=== PATIENT | female | born 1945 | race African-American/Black ===

== ENCOUNTER 2017-02-13 16:57 | Inpatient (IN) | payer MEDICARE, OTHER ==
[~2017-02-13] VITALS: Ht 170.2 cm; Wt 59.0 kg
[2017-02-13] MEDS ORDERED: SIMVASTATIN20 MG ORAL (17:13)
[2017-02-13] MEDS ORDERED: PROZAC10 MG ORAL (17:13)
[2017-02-13] MEDS ORDERED: AVAPRO150 MG ORAL (17:13)
[2017-02-13] MEDS ORDERED: FERROUS SULFAT325 MG ORAL (17:13)
[2017-02-13] MEDS ORDERED: PROZAC20 MG ORAL (17:13)
[2017-02-13] MEDS ORDERED: JANUVIA100 MG ORAL (17:13)
[2017-02-13] MEDS ORDERED: PRILOSEC OTC20 MG ORAL (17:13)
[2017-02-13] MEDS ORDERED: TRAZODONE HCL100 MG ORAL (17:13)
[2017-02-13] MEDS ORDERED: SYNTHROID25 MCG ORAL (17:13)
[2017-02-13 18:06] LABS: BASOPHILS % (AUTO) 1.3 % (0.0-2.0); EOSINOPHILS % (AUTO) 4.1 % (0.0-3.0); LYMPHOCYTES % (AUTO) 33.7 % (20.0-45.0); MEAN CORPUSCULAR HEMOGLOBIN 30.9 PG (27.0-31.0); MEAN CORPUSCULAR HGB CONC 33.9 G/DL (32.0-36.0); MEAN CORPUSCULAR VOLUME 91 FL (80-99); MEAN PLATELET VOLUME 7.6 FL (6.5-10.1); MONOCYTES % (AUTO) 13.5 % (1.0-10.0); NEUTROPHILS % (AUTO) 47.4 % (45.0-75.0); PLATELET COUNT 175 K/UL (150-450); RED BLOOD COUNT 3.87 M/UL (4.20-5.40); RED CELL DISTRIBUTION WIDTH 11.8 % (11.6-14.8); WHITE BLOOD COUNT 6.7 K/UL (4.8-10.8)
[2017-02-13 18:20] VITALS: BP 112/99
[2017-02-13 18:21] LABS: APPEARANCE,URINE CLEAR; KETONES,URINE NEGATIVE (NEGATIVE); LEUKOCYTE ESTERASE ,URINE NEGATIVE (NEGATIVE); NITRITE,URINE NEGATIVE (NEGATIVE); PH,URINE 6.5 (4.5-8.0); PROTEIN,URINE NEGATIVE (NEGATIVE); UROBILINOGEN,URINE NORMAL MG/DL (0.0-1.0)
[2017-02-13 18:42] LABS: TROPONIN I < 0.30 ng/mL (<=0.30)
[2017-02-13 18:45] LABS: ALANINE AMINOTRANSFERASE 7 U/L (3-33); ALBUMIN/GLOBULIN RATIO 1.7 (1.0-2.7); ANION GAP 17 (5-15); ASPARTATE AMINO TRANSFERASE 14 U/L (5-40); CALCIUM 9.6 mg/dL (8.6-10.2); CARBON DIOXIDE 22 mEQ/L (20-30); CHLORIDE 95 mEQ/L (98-107); CREATININE 1.3 mg/dL (0.5-0.9); HEMOLYSIS 19; POTASSIUM 4.4 mEQ/L (3.4-4.9); SODIUM 134 mEQ/L (135-145); TOTAL PROTEIN 6.4 g/dL (6.6-8.7)
[2017-02-13 18:55] LABS: CKMB 1.6 ng/mL (< 3.8)
[2017-02-13 19:50] VITALS: BP 115/98
[2017-02-13 21:00] VITALS: BP 135/76
--- NOTE | 2017-02-13 23:04 | Emergency Room Report ---
History of Present Illness General Chief Complaint: Lower Extremity Injury Source: Medical Record Present Illness HPI 71-year-old female presents to ED for evaluation. Patient referred here by PMD. Patient had a fall at her intermediate today. Patient states she has pain in both of her knees, left worse than right. Pain as throbbing, 8/10, nonradiating. She states she feels weak. Denies any dizziness. Denies any chest pain or shortness of breath. Denies hitting her head or LOC. No other aggravating or relieving factors. Denies any other associated symptoms Allergies: Coded Allergies: BUPROPION (Verified Allergy, Intermediate, 02/13/17) Patient History Past Medical History: DM, HTN Past Surgical History: none Pertinent Family History: none Social History: Denies: alcohol use, drug use, smoking Now: No Immunizations: UTD Reviewed Nursing Documentation: PMH: Agreed, PSxH: Agreed Nursing Documentation-PMH Hx Cardiac Problems: No Hx Hypertension: Yes Hx Pacemaker: No Hx Asthma: No Hx COPD: No Hx Diabetes: Yes Hx Cancer: No Hx Gastrointestinal Problems: Yes - anemia Hx Dialysis: No History Of Psychiatric Problem: No Hx Neurological Problems: No Hx Cerebrovascular Accident: No Hx Seizures: No Review of Systems All Other Systems: negative except mentioned in HPI Physical Exam Vital Signs Date Time Temp Pulse Resp B/P Pulse Ox O2 Delivery O2 Flow Rate FiO2 02/13/17 16:58 97.9 68 16 145/80 98 Room Air Sp02 EP Interpretation: reviewed, normal General Appearance: no apparent distress, alert, GCS 15, non-toxic Head: normocephalic, atraumatic Eyes: bilateral eye PERRL, bilateral eye normal inspection ENT: hearing grossly normal, normal pharynx, no angioedema, normal voice Neck: full range of motion, supple/symm/no masses Respiratory: chest non-tender, lungs clear, normal breath sounds, speaking full sentences Cardiovascular #1: regular rate, rhythm, no edema Cardiovascular #2: 2+ carotid (R), 2+ carotid (L), 2+ radial (R), 2+ radial (L) , 2+ dorsalis pedis (R), 2+ dorsalis pedis (L) Gastrointestinal: normal bowel sounds, non tender, soft, non-distended, no guarding, no rebound Rectal: deferred Genitourinary: normal inspection, no CVA tenderness Musculoskeletal: back normal, gait/station normal, normal range of motion, non- tender, tender - bilateral knees. L >> R Neurologic: alert, oriented x3, responsive, motor strength/tone normal, sensory intact, speech normal Psychiatric: judgement/insight normal, memory normal, mood/affect normal, no suicidal/homicidal ideation Reflexes: 3+ bicep (R), 3+ bicep (L), 3+ tricep (R), 3+ tricep (L), 3+ knee (R) , 3+ knee (L) Skin: normal color, no rash, warm/dry, well hydrated Lymphatic: no adenopathy Medical Decision Making Diagnostic Impression: Primary Impression: Weakness Additional Impressions: Unsteady gait Osteoarthritis of left knee Qualified Codes: M17.12 - Unilateral primary osteoarthritis, left knee ARF (acute renal failure) Qualified Codes: N17.9 - Acute kidney failure, unspecified ER Course Hospital Course 71-year-old female presents to ED with bilateral knee pain. Status post fall. Feeling weak and dizzy Differential diagnoses include: NC/unstable angina, arrythmia, dehydration, CVA/ TIA Clinical course Patient placed on stretcher. on inspector repairer. After initial history and physical I ordered labs, EKG, chest x-ray, IVFs, CT Brain labs reviewed- no leukocytosis, hemoglobin/hematocrit ok, BUN/Cr elevated, troponins negative EKG- NSR, no acute changes Chest x-ray- no acute process CT brain-patient refused X-rays of bilateral knees show no acute fracture, however there is significant arthritis left worse than right Case discussed with Dr. Blanca and he agreed to accept the patient to his service for further care and support I. I feel this is a highly complex case requiring extensive working including EKG/Rhythm strip, Xray/CT/US, Blood/urine lab work, repeat exams while in ED, and administration of strong opiates/narcotics for pain control, admission to hospital or close patient follow up. Diagnosis - weakness, unsteady gait, osteoarthritis of the left knee, ARF admitted to floor in serious condition Labs Test 02/13/17 17:30 White Blood Count 6.7 K/UL (4.8-10.8) Red Blood Count 3.87 M/UL (4.20-5.40) Hemoglobin 12.0 G/DL (12.0-16.0) Hematocrit 35.3 % (37.0-47.0) Mean Corpuscular Volume 91 FL (80-99) Mean Corpuscular Hemoglobin 30.9 PG (27.0-31.0) Mean Corpuscular Hemoglobin Concent 33.9 G/DL (32.0-36.0) Red Cell Distribution Width 11.8 % (11.6-14.8) Platelet Count 175 K/UL (150-450) Mean Platelet Volume 7.6 FL (6.5-10.1) Neutrophils (%) (Auto) 47.4 % (45.0-75.0) Lymphocytes (%) (Auto) 33.7 % (20.0-45.0) Monocytes (%) (Auto) 13.5 % (1.0-10.0) Eosinophils (%) (Auto) 4.1 % (0.0-3.0) Basophils (%) (Auto) 1.3 % (0.0-2.0) Urine Color Pale yellow Urine Appearance Clear Urine pH 6.5 (4.5-8.0) Urine Specific [place] 1.005 (1.005-1.035) Urine Protein Negative (NEGATIVE) Urine Glucose (UA) Negative (NEGATIVE) Urine Ketones Negative (NEGATIVE) Urine Occult Blood Negative (NEGATIVE) Urine Nitrite Negative (NEGATIVE) Urine Bilirubin Negative (NEGATIVE) Urine Urobilinogen Normal MG/DL (0.0-1.0) Urine Leukocyte Esterase Negative (NEGATIVE) Sodium Level 134 mEQ/L (135-145) Potassium Level 4.4 mEQ/L (3.4-4.9) Chloride Level 95 mEQ/L (98-107) Carbon Dioxide Level 22 mEQ/L (20-30) Anion Gap 17 (5-15) Blood Urea Nitrogen 31 mg/dL (7-23) Creatinine 1.3 mg/dL (0.5-0.9) Estimat Glomerular Filtration Rate mL/min (>60) Glucose Level 111 mg/dL (74-106) Calcium Level 9.6 mg/dL (8.6-10.2) Total Bilirubin 0.4 mg/dL (0.0-1.2) Aspartate Amino Transf (AST/SGOT) 14 U/L (5-40) Alanine Aminotransferase (ALT/SGPT) 7 U/L (3-33) Alkaline Phosphatase 79 U/L (35-104) Total Creatine Kinase 57 U/L (26-140) Creatine Kinase MB 1.6 ng/mL (< 3.8) Creatine Kinase MB Relative Index 2.8 Troponin I < 0.30 ng/mL (<=0.30) Total Protein 6.4 g/dL (6.6-8.7) Albumin 4.1 g/dL (3.5-5.2) Globulin 2.3 g/dL Albumin/Globulin Ratio 1.7 (1.0-2.7) EKG Diagnostic Results Rate: normal Rhythm: NSR ST Segments: no acute changes ASA given to the pt in ED: No Rhythm Strip Diag. Results EP Interpretation: yes Rhythm: NSR, no PVC's, no ectopy Chest X-Ray Diagnostic Results EP Interpretation: Yes Findings: no consolidation, no effusion, no pneumothorax, no acute cardiopulmonary disease Number of Views: 1 Other X-Ray Diagnostic Results Other X-Ray Diagnostic Results : X-Ray Ordered: R knee, L knee EP Interpretation: Yes Findings: no fractures, no dislocation, no soft tissue swelling Number of Views: 3 Other Impression Right knee-No fracture, no dislocation, no soft tissue swelling Left knee-No fracture, no dislocation, no soft tissue swelling CT/MRI/US Diagnostic Results CT/MRI/US Diagnostic Results : Imaging Test Ordered: CT Head Impression patient refused Last Vital Signs Date Time Temp Pulse Resp B/P Pulse Ox O2 Delivery O2 Flow Rate FiO2 02/13/17 21:00 97.7 77 20 135/76 98 Room Air Status: improved Disposition: ADMITTED INPATIENT Condition: Serious Referrals: PHILIPP BLANCA (PCP) UNIQUE GROSSMAN M.D. February 13, 2017 23:04
[2017-02-14] VITALS: BP 139/81
--- NOTE | 2017-02-14 03:01 | History and Physical Report ---
DATE OF ADMISSION: 02/13/2017 CHIEF COMPLAINT: Lower extremity pain, knee pain, status post multiple falls, and weakness. HISTORY OF PRESENT ILLNESS: This is a 71-year-old female, who was brought in to the emergency room for evaluation of multiple falls and generalized weakness. The patient lives at the assisted living and she has had multiple falls in the assisted living. She is now complaining of both knee pain with the left knee worse than the right. She has a history of alcohol abuse in the past plus diabetes. The patient denies any chest pain or shortness of breath. No history of syncope. PAST MEDICAL HISTORY: Includes history of depression, hyperlipidemia, diabetes, hypertension, obesity, and osteoarthritis of the knees. PAST SURGICAL HISTORY: None. CURRENT MEDICATIONS: Please see the medication list. ALLERGIES: Allergy to bupropion. SOCIAL HISTORY: No smoking history. Positive history of alcohol use. No drug use. FAMILY HISTORY: Noncontributory. REVIEW OF SYSTEMS: Negative except per history of present illness. PHYSICAL EXAMINATION: VITAL SIGNS: Temperature 97.9 degrees, pulse 68, respirations 16, blood pressure 145/80, and pulse ox 98% on room air. GENERAL APPEARANCE: Alert, oriented, and in no apparent distress. HEENT: Normocephalic and normochromic. Extraocular muscles intact. Throat is clear. NECK: Supple. No lymphadenopathy. RESPIRATION: Clear to auscultation bilaterally. No wheezing. No rales. CARDIOVASCULAR SYSTEM: Regular rate and rhythm. No murmur. No gallop. GASTROINTESTINAL: Soft, nontender, and nondistended. Positive bowel sounds. Positive central obesity. GENITOURINARY: No CVA tenderness. SKIN: No rash. EXTREMITIES: No edema, cyanosis, or clubbing. NEUROLOGIC: Alert and oriented x3. Responsive. No gross motor or sensory deficits. LABORATORY DATA: Laboratory data includes WBC 6.7, hemoglobin 12, hematocrit 35.3, platelet count 175,000, neutrophils , and lymphocytes 33. Sodium 134, potassium 4.4, chloride 95, bicarb 22, BUN 31, and creatinine 1.3. Glucose 111. AST 14, ALT 7, and alkaline phosphatase 79. Troponin less than 0.3. Albumin 4.1. UA negative. IMPRESSION: 1. Generalized weakness. 2. Unsteady gait and gait instability. 3. Osteoarthritis of left knee. 4. Acute kidney injury. 5. Hypertension. 6. Diabetes mellitus type 2. 7. Hyperlipidemia and hyperthyroidism. PLAN: The patient will be admitted for minimum of two-night stay for generalized weakness and gait instability. The patient will be followed by PT and OT for evaluation and will be transferred to the custodial/rehab for further physical therapy at which point after the patient improves, we will transfer the patient back to the assisted living. Iris Blanca M.D. DR: MISSAEL JOB#: [id number] CC:
[2017-02-14 04:00] VITALS: BP 127/61
[2017-02-14] MEDS: Levothyroxine 25mcg tab ORAL SCH (06:23)
[2017-02-14 07:32] LABS: BASOPHILS % (AUTO) 1.2 % (0.0-2.0); EOSINOPHILS % (AUTO) 4.6 % (0.0-3.0); LYMPHOCYTES % (AUTO) 30.1 % (20.0-45.0); MEAN CORPUSCULAR HEMOGLOBIN 29.8 PG (27.0-31.0); MEAN CORPUSCULAR HGB CONC 33.1 G/DL (32.0-36.0); MEAN CORPUSCULAR VOLUME 90 FL (80-99); MEAN PLATELET VOLUME 8.5 FL (6.5-10.1); MONOCYTES % (AUTO) 12.5 % (1.0-10.0); NEUTROPHILS % (AUTO) 51.6 % (45.0-75.0); PLATELET COUNT 216 K/UL (150-450); RED BLOOD COUNT 3.92 M/UL (4.20-5.40); RED CELL DISTRIBUTION WIDTH 11.8 % (11.6-14.8); WHITE BLOOD COUNT 4.6 K/UL (4.8-10.8)
[2017-02-14 07:58] LABS: ALANINE AMINOTRANSFERASE 6 U/L (3-33); ALBUMIN/GLOBULIN RATIO 1.3 (1.0-2.7); ANION GAP 15 (5-15); ASPARTATE AMINO TRANSFERASE 12 U/L (5-40); CALCIUM 9.8 mg/dL (8.6-10.2); CARBON DIOXIDE 23 mEQ/L (20-30); CHLORIDE 97 mEQ/L (98-107); CREATININE 1.2 mg/dL (0.5-0.9); HEMOLYSIS 6; POTASSIUM 4.4 mEQ/L (3.4-4.9); SODIUM 135 mEQ/L (135-145); TOTAL PROTEIN 6.6 g/dL (6.6-8.7)
[2017-02-14 08:00] VITALS: BP 140/60
[2017-02-14 08:49] LABS: HEMOGLOBIN A1C 5.7 % (< 6.0)
[2017-02-14] MEDS: Heparin 5000 units/ml inj SUBQ SCH ×2 (09:00→21:19)
[2017-02-14] MEDS: FLUoxetine 10mg cap ORAL SCH (09:05)
[2017-02-14] MEDS: Irbesartan 150mg tablet ORAL SCH (09:05)
[2017-02-14] MEDS: Tums 500mg ORAL SCH ×2 (09:05→17:10)
[2017-02-14 12:00] VITALS: BP 131/53
--- NOTE | 2017-02-14 12:15 | Diagnostic Imaging Report ---
Indication: Chest Pain Comparison: None A single view chest radiograph was obtained. Findings: No definite infiltrate or pulmonary vascular congestion identified. The heart is normal in size. The aorta is mildly enlarged consistent with atherosclerotic vascular disease. The bones are osteopenic. Impression: No acute disease
--- NOTE | 2017-02-14 12:16 | Diagnostic Imaging Report ---
Indication: Pain 3 views of the right knee were obtained. Findings: There is joint space narrowing with marginal osteophyte formation and subchondral sclerosis. Bones are osteopenic. There is no joint effusion. There is mild genu valgum is deformity. Impression: Osteoarthritis
--- NOTE | 2017-02-14 15:31 | General Progress Note ---
Assessment/Plan Status: stable Assessment/Plan 1. Generalized weakness with hx of multiple fall - PT and OT eval txt ordered. 2. OA of knees - will have her see ortho as outpatient for possible consideration for Total Knee Replacement. 3. Unsteady gait and gait instability - will transfer to [facility] for further PT and OT. 4. Acute kidney injury - had IVF in ER. 5. Hypertension - cont Avapro 150 mg one po daily. 6. Diabetes mellitus type 2 - cont. Januvia 100 mg one po daily. 7. Hyperlipidemia - cont Atorvastatin 10 mg one po qhs. 8. hypothyroidism - cont levothyroxine 25 mcg one po QAM 9. Depression - cont prozac 30 mg daily. 10. GERD - cont protonix 40 mg one po daily. Subjective Date patient seen: February 14, 2017 Time patient seen: 03:15 Constitutional: Reports: no symptoms HEENT: Reports: no symptoms Cardiovascular: Reports: no symptoms Respiratory: Reports: no symptoms Gastrointestinal/Abdominal: Reports: no symptoms Genitourinary: Reports: no symptoms Neurologic/Psychiatric: Reports: no symptoms Endocrine: Reports: no symptoms Hematologic/Lymphatic: Reports: no symptoms Allergies: Coded Allergies: BUPROPION (Verified Allergy, Intermediate, 02/13/17) Subjective She c/o Lt knee pain and she has hx of multiple falls. no sob or chest pain. no fever or chills. no nausea or vomiting. Objective Last 24 Hour Vital Signs Date Time Temp Pulse Resp B/P Pulse Ox O2 Delivery O2 Flow Rate FiO2 02/14/17 12:00 97.5 62 20 131/53 98 Room Air 02/14/17 11:09 98.1 02/14/17 09:05 140/60 02/14/17 08:00 98.1 73 19 140/60 94 Room Air 02/14/17 04:00 97.9 79 18 127/61 95 Room Air 02/14/17 00:00 97.7 72 20 139/81 99 Room Air 02/13/17 21:00 97.7 77 20 135/76 98 Room Air 02/13/17 19:55 98.0 74 16 115/98 98 Room Air 02/13/17 19:50 98.0 74 16 115/98 98 Room Air 02/13/17 18:20 97.2 74 18 112/99 97 Room Air 02/13/17 16:58 97.9 68 16 145/80 98 Room Air Intake and Output 02/13/17 02/14/17 19:00 07:00 Intake Total 500 ml Balance 500 ml Intake Oral 0 ml IV Total 500 ml # Voids 3 Laboratory Tests 02/13/17 17:30: White Blood Count 6.7, Red Blood Count 3.87L, Hemoglobin 12.0, Hematocrit 35.3L , Mean Corpuscular Volume 91, Mean Corpuscular Hemoglobin 30.9, Mean Corpuscular Hemoglobin Concent 33.9, Red Cell Distribution Width 11.8, Platelet Count 175, Mean Platelet Volume 7.6, Neutrophils (%) (Auto) 47.4, Lymphocytes (% ) (Auto) 33.7, Monocytes (%) (Auto) 13.5H, Eosinophils (%) (Auto) 4.1H, Basophils (%) (Auto) 1.3, Urine Color Pale yellow, Urine Appearance Clear, Urine pH 6.5, Urine Specific [place] 1.005, Urine Protein Negative, Urine Glucose (UA) Negative, Urine Ketones Negative, Urine Occult Blood Negative, Urine Nitrite Negative, Urine Bilirubin Negative, Urine Urobilinogen Normal, Urine Leukocyte Esterase Negative, Sodium Level 134L, Potassium Level 4.4, Chloride Level 95L, Carbon Dioxide Level 22, Anion Gap 17H, Blood Urea Nitrogen 31H, Creatinine 1.3H, Estimat Glomerular Filtration Rate , Glucose Level 111H, Calcium Level 9.6, Total Bilirubin 0.4, Aspartate Amino Transf (AST/SGOT) 14, Alanine Aminotransferase (ALT/SGPT) 7, Alkaline Phosphatase 79, Total Creatine Kinase 57, Creatine Kinase MB 1.6, Creatine Kinase MB Relative Index 2.8, Troponin I < 0.30, Total Protein 6.4L, Albumin 4.1, Globulin 2.3, Albumin/ Globulin Ratio 1.7 02/14/17 06:40: White Blood Count 4.6L, Red Blood Count 3.92L, Hemoglobin 11.7L, Hematocrit 35.3L, Mean Corpuscular Volume 90, Mean Corpuscular Hemoglobin 29.8, Mean Corpuscular Hemoglobin Concent 33.1, Red Cell Distribution Width 11.8, Platelet Count 216, Mean Platelet Volume 8.5, Neutrophils (%) (Auto) 51.6, Lymphocytes (% ) (Auto) 30.1, Monocytes (%) (Auto) 12.5H, Eosinophils (%) (Auto) 4.6H, Basophils (%) (Auto) 1.2, Sodium Level 135, Potassium Level 4.4, Chloride Level 97L, Carbon Dioxide Level 23, Anion Gap 15, Blood Urea Nitrogen 23, Creatinine 1.2H, Estimat Glomerular Filtration Rate , Glucose Level 121H, Calcium Level 9.8 , Total Bilirubin 0.4, Aspartate Amino Transf (AST/SGOT) 12, Alanine Aminotransferase (ALT/SGPT) 6, Alkaline Phosphatase 68, Total Protein 6.6, Albumin 3.8, Globulin 2.8, Albumin/Globulin Ratio 1.3, Hemoglobin A1c 5.7, Thyroid Stimulating Hormone (TSH) 1.100, Free Thyroxine 1.23 Height (Feet): 5 Height (Inches): 7.00 Weight (Pounds): 130 General Appearance: no apparent distress, alert EENT: normal ENT inspection Neck: non-tender, normal alignment, supple Cardiovascular: normal peripheral pulses, normal rate, regular rhythm Respiratory/Chest: chest wall non-tender, lungs clear, normal breath sounds Abdomen: normal bowel sounds, non tender, soft Extremities: normal range of motion, other - Bilateral knee tenderness, Lt more than Rt Edema: no edema noted Arm (L), no edema noted Arm (R), no edema noted Leg (L), no edema noted Leg (R), no edema noted Pedal (L), no edema noted Pedal (R), no edema noted Generalized Neurologic: alert, oriented x 3, responsive Skin: warm/dry Lymphatic: normal anterior cervical (L), normal anterior cervical (R), normal axillary (L), normal axillary (R), normal inguinal (L), normal inguinal (R), normal other, normal posterior cervical (L), normal posterior cervical (R), normal submandibular (L), normal submandibular (R), normal supraclavicular (L), normal supraclavicular (R) PHILIPP HONG February 14, 2017 15:31
[2017-02-14 16:00] VITALS: BP 131/59
[2017-02-14] MEDS: traMADol 50mg tab ORAL PRN (17:10)
[2017-02-14 21:00] VITALS: BP 118/48
[2017-02-14] MEDS: TraZODone 100mg tab ORAL SCH (21:19)
[2017-02-15] VITALS: BP 133/65
[2017-02-15 04:00] VITALS: BP 148/69
[2017-02-15] MEDS: Levothyroxine 25mcg tab ORAL SCH (06:06)
[2017-02-15 08:00] VITALS: BP 111/54
[2017-02-15] MEDS: Tums 500mg ORAL SCH ×2 (08:27→17:26)
[2017-02-15] MEDS: FLUoxetine 10mg cap ORAL SCH (08:32)
[2017-02-15] MEDS: Irbesartan 150mg tablet ORAL SCH (08:33)
[2017-02-15] MEDS: Heparin 5000 units/ml inj SUBQ SCH ×2 (08:38→21:20)
[2017-02-15 11:55] VITALS: BP 118/67
--- NOTE | 2017-02-15 13:13 | General Progress Note ---
Assessment/Plan Status: stable Assessment/Plan 1. Generalized weakness with hx of multiple fall - Cont PT and OT eval txt. D/ C planning to [facility] tomorrow. 2. OA of knees - will have her see ortho as outpatient for possible consideration for Total Knee Replacement. 3. Unsteady gait and gait instability - D/C planning to [facility] for further PT and OT. 4. Acute kidney injury - improved. 5. Hypertension - cont Avapro 150 mg one po daily. 6. Diabetes mellitus type 2 - cont. Januvia 100 mg one po daily. 7. Hyperlipidemia - cont Atorvastatin 10 mg one po qhs. 8. hypothyroidism - cont levothyroxine 25 mcg one po Q AM 9. Depression - cont prozac 30 mg daily. 10. GERD - cont protonix 40 mg one po daily. Subjective Date patient seen: February 15, 2017 Time patient seen: 13:00 Constitutional: Reports: no symptoms HEENT: Reports: no symptoms Cardiovascular: Reports: no symptoms Respiratory: Reports: no symptoms Gastrointestinal/Abdominal: Reports: no symptoms Genitourinary: Reports: no symptoms Neurologic/Psychiatric: Reports: no symptoms Endocrine: Reports: no symptoms Hematologic/Lymphatic: Reports: no symptoms Allergies: Coded Allergies: BUPROPION (Verified Allergy, Intermediate, 02/13/17) Subjective She has Lt knee pain and she has hx of multiple falls. no sob or chest pain. no fever or chills. no nausea or vomiting. Objective Last 24 Hour Vital Signs Date Time Temp Pulse Resp B/P Pulse Ox O2 Delivery O2 Flow Rate FiO2 02/15/17 11:55 97.9 71 19 118/67 95 Room Air 02/15/17 08:00 97.1 77 18 111/54 95 Room Air 02/15/17 04:00 97.7 79 17 148/69 95 Room Air 02/15/17 00:00 97.7 68 17 133/65 97 Room Air 02/14/17 21:00 98.1 60 16 118/48 97 Room Air 02/14/17 18:09 98.1 02/14/17 16:00 98.1 67 20 131/59 96 Room Air Intake and Output 02/14/17 02/15/17 19:00 07:00 Intake Total 720 ml Balance 720 ml Intake Oral 720 ml # Voids 5 2 Height (Feet): 5 Height (Inches): 7.00 Weight (Pounds): 130 General Appearance: no apparent distress, alert Neck: non-tender, normal alignment, supple Cardiovascular: normal peripheral pulses, normal rate, regular rhythm Respiratory/Chest: chest wall non-tender, lungs clear, normal breath sounds Abdomen: normal bowel sounds, non tender, soft Extremities: other - bilateral knee tenderness with Lt side more than Rt side Edema: no edema noted Arm (L), no edema noted Arm (R), no edema noted Leg (L), no edema noted Leg (R), no edema noted Pedal (L), no edema noted Pedal (R), no edema noted Generalized Neurologic: alert, oriented x 3, responsive Skin: warm/dry Lymphatic: normal anterior cervical (L), normal anterior cervical (R), normal axillary (L), normal axillary (R), normal inguinal (L), normal inguinal (R), normal other, normal posterior cervical (L), normal posterior cervical (R), normal submandibular (L), normal submandibular (R), normal supraclavicular (L), normal supraclavicular (R) PHILIPP HONG February 15, 2017 13:13
[2017-02-15 16:23] VITALS: BP 109/50
[2017-02-15 20:00] VITALS: BP 132/68
[2017-02-15] MEDS: TraZODone 100mg tab ORAL SCH (21:15)
[2017-02-16] MEDS: Levothyroxine 25mcg tab ORAL SCH (06:23)
[2017-02-16 08:00] VITALS: BP 147/63
[2017-02-16] MEDS: traMADol 50mg tab ORAL PRN (08:29)
[2017-02-16] MEDS: FLUoxetine 10mg cap ORAL SCH (08:29)
[2017-02-16] MEDS: Irbesartan 150mg tablet ORAL SCH (08:30)
[2017-02-16] MEDS: Heparin 5000 units/ml inj SUBQ SCH (08:31)
[2017-02-16] MEDS: Tums 500mg ORAL SCH (08:33)
[2017-02-16 12:00] VITALS: BP 128/56
[2017-02-16] MEDS ORDERED: TRAMADOL HCL50 MG ORAL (13:14)
[2017-02-16] MEDS ORDERED: IBUPROFEN800 MG ORAL (13:14)
--- NOTE | 2017-02-16 13:21 | General Progress Note ---
Assessment/Plan Status: stable Assessment/Plan 1. Generalized weakness with hx of multiple fall - D/C to [facility] today. 2. OA of knees - will have her see ortho as outpatient for possible consideration for Total Knee Replacement. 3. Unsteady gait and gait instability - D/C to [facility] for further PT and OT today. 4. Acute kidney injury - improved. 5. Hypertension - cont Avapro 150 mg one po daily. 6. Diabetes mellitus type 2 - cont. Januvia 100 mg one po daily. 7. Hyperlipidemia - cont Atorvastatin 10 mg one po qhs. 8. hypothyroidism - cont levothyroxine 25 mcg one po Q AM 9. Depression - cont prozac 30 mg daily. 10. GERD - cont protonix 40 mg one po daily. Subjective Date patient seen: February 16, 2017 Time patient seen: 13:00 Constitutional: Reports: no symptoms HEENT: Reports: no symptoms Cardiovascular: Reports: no symptoms Respiratory: Reports: no symptoms Gastrointestinal/Abdominal: Reports: no symptoms Genitourinary: Reports: no symptoms Neurologic/Psychiatric: Reports: no symptoms Endocrine: Reports: no symptoms Hematologic/Lymphatic: Reports: no symptoms Allergies: Coded Allergies: BUPROPION (Verified Allergy, Intermediate, 02/13/17) Subjective She has Lt knee pain and she has hx of multiple falls. she will go to [facility] today. no sob or chest pain. no fever or chills. no nausea or vomiting. Objective Last 24 Hour Vital Signs Date Time Temp Pulse Resp B/P Pulse Ox O2 Delivery O2 Flow Rate FiO2 02/16/17 12:00 98.2 68 20 128/56 96 Room Air 02/16/17 10:24 97.9 02/16/17 08:30 132/68 02/16/17 08:00 97.9 67 20 147/63 97 Room Air 02/15/17 20:00 97.9 74 20 132/68 95 Room Air 02/15/17 16:23 97.0 76 20 109/50 98 Room Air Intake and Output 02/15/17 02/16/17 19:00 07:00 Intake Total 600 ml Output Total 550 ml Balance 50 ml Intake Oral 600 ml Output Urine Total 550 ml # Voids 2 6 # Bowel Movements 3 Height (Feet): 5 Height (Inches): 7.00 Weight (Pounds): 130 General Appearance: no apparent distress, alert EENT: normal ENT inspection, TMs normal Neck: non-tender, normal alignment, supple Cardiovascular: normal peripheral pulses, normal rate, regular rhythm Respiratory/Chest: chest wall non-tender, lungs clear, normal breath sounds Abdomen: normal bowel sounds, non tender, soft Extremities: non-tender Edema: no edema noted Arm (L), no edema noted Arm (R), no edema noted Leg (L), no edema noted Leg (R), no edema noted Pedal (L), no edema noted Pedal (R), no edema noted Generalized Neurologic: alert, oriented x 3, responsive Skin: warm/dry Lymphatic: normal anterior cervical (L), normal anterior cervical (R), normal axillary (L), normal axillary (R), normal inguinal (L), normal inguinal (R), normal other, normal posterior cervical (L), normal posterior cervical (R), normal submandibular (L), normal submandibular (R), normal supraclavicular (L), normal supraclavicular (R) PHILIPP HONG February 16, 2017 13:21
--- NOTE | 2017-02-16 14:49 | Cardiology Report ---
APPROVED REPORT EKG Measurement Heart [id number] Normal sinus rhythm Anterior infarct, age undetermined Abnormal ECG
[2017-02-16 16:00] VITALS: BP 127/61
--- NOTE | 2017-02-17 00:30 | Discharge Summary ---
DATE OF ADMISSION: 02/13/2017 DATE OF DISCHARGE: 02/16/2017 HOSPITAL COURSE: This is a 71-year-old female, who was brought in to the emergency room for evaluation of multiple falls and generalized weakness for the past few weeks from assisted living. The patient has severe osteoarthritis of the left knee more than right and unable to walk. she had multiple falls at her assisted living. No SOB or chest pain. No fever or chills. The patient was admitted to the hospital and will be transferred to the snf at [facility] for physical therapy and will have outpatient Orthopedics to see the patient and evaluate for the patient for possible total knee replacement. While in the hospital, the patient received adequate pain management with Motrin and tramadol. PAST MEDICAL HISTORY: Includes history of depression, hyperlipidemia, diabetes, hypertension, obesity, and osteoarthritis of the knee. DISCHARGE DIAGNOSES: 1. Generalized weakness. 2. Unsteady gait and gait instability. 3. Osteoarthritis of left knee. 4. Acute kidney injury, resolved. 5. Hypertension. 6. Diabetes type 2, controlled. 7. Hyperlipidemia . 8. Hypothyroidism. DISCHARGE MEDICATIONS: Ferrous sulfate 325 mg one daily, Prozac 10 mg daily and also Prozac 20 mg nightly, Avapro 150 mg daily, Synthroid 25 mcg daily, Prilosec 20 mg daily, Zocor 20 mg nightly, Januvia 100 mg daily, trazodone 100 mg nightly, tramadol 50 mg b.i.d. p.r.n., and ibuprofen 800 mg every 8 hours p.r.n. for pain. DISPOSITION: The patient will be transferred to [facility] for physical therapy and we will arrange the patient to be seen by Orthopedic as outpatient and consideration of a total knee replacement will be done once the patient see the Orthopedic as outpatient. Iris Blanca M.D. DR: Johan JOB#: [id number] CC: ANAHY
--- NOTE | 2017-02-17 08:33 | Diagnostic Imaging Report ---
Indication: Pain 3 views of the left knee were obtained. Findings: There is deformity and depression of the lateral tibial plateau which is indicative of an old fracture most likely. The bones are osteopenic. There is distention of the suprapatellar pouch and moderate hypertrophic spurring of the patellofemoral compartment and lesser extent the other compartments. Impression: No acute injury identified. Moderate joint effusion Old lateral tibial plateau fracture suspected. Moderate osteoarthritis/osteopenia
== END 2017-02-16 16:52 | DRG 554 ==
LOC: EDUNIT# 16:57 → EDBD 16:57 → EMR 17:45 → 4E 17:49 → EDBEDREQ 18:23
DX: M17.0 Bilateral primary osteoarthritis of knee (principal); N17.9 Acute kidney failure, unspecified; R26.81 Unsteadiness on feet; I10 Essential (primary) hypertension; E11.9 Type 2 diabetes mellitus without complications; E78.5 Hyperlipidemia, unspecified; E03.9 Hypothyroidism, unspecified; Z91.81 History of falling; F32.9 Major depressive disorder, single episode, unspecified; R53.1 Weakness; F10.21 Alcohol dependence, in remission
CPT/HCPCS: 36415; 71010; 80053; 81003; 82550; 82553; 82962; 83036; 84439; 84443; 84484; 85025; 87081; 93005

== ENCOUNTER 2017-07-25 16:15 | Emergency (ER) | payer MEDICARE, BC, OTHER ==
[~2017-07-25] VITALS: Ht 167.6 cm; Wt 81.6 kg
[~2017-07-25 16:15] MED LIST: AVAPRO150 MG ORAL; FERROUS SULFAT325 MG ORAL; IBUPROFEN800 MG ORAL; JANUVIA100 MG ORAL; PRILOSEC OTC20 MG ORAL; PROZAC10 MG ORAL; PROZAC20 MG ORAL; SIMVASTATIN20 MG ORAL; SYNTHROID25 MCG ORAL; TRAMADOL HCL50 MG ORAL; TRAZODONE HCL100 MG ORAL
[2017-07-25 16:20] VITALS: BP 143/83
[2017-07-25] MEDS ORDERED: CALCIUM500 M3 PO (16:36)
[2017-07-25] MEDS ORDERED: MULTIVITAMINS1 EAC2 ORAL (16:36)
[2017-07-25] MEDS ORDERED: BENADRYL25 MG ORAL (16:36)
[2017-07-25] MEDS ORDERED: ASPIR 8181 MG ORAL (16:36)
[2017-07-25] MEDS ORDERED: OMEPRAZOLE20 M2 ORAL (16:36)
--- NOTE | 2017-07-25 16:42 | Emergency Room Report ---
History of Present Illness General Chief Complaint: Abdominal Pain Source: Patient, Medical Record Present Illness HPI [id number] BIBSILVIA from SNF with 2 days LUQ abd pain, nausea without vomiting Feels like "I have a urinary infection." States has history of OA - has bathroom in room - but no one comes to assist her to go to bathroom, sits in wet diaper. Denies fever/chills, diarrhea, recent surgery or ABx use History of ETOH abuse per January 2017 admission: PAST MEDICAL HISTORY: Includes history of depression, hyperlipidemia, diabetes, hypertension, obesity, and osteoarthritis of the knee. DISCHARGE DIAGNOSES: 1. Generalized weakness. 2. Unsteady gait and gait instability. 3. Osteoarthritis of left knee. 4. Acute kidney injury, resolved. 5. Hypertension. 6. Diabetes type 2, controlled. 7. Hyperlipidemia . 8. Hypothyroidism. Allergies: Coded Allergies: BUPROPION (Verified Allergy, Intermediate, 02/13/17) ATORVASTATIN (Unverified Allergy, Unknown, 07/25/17) Patient History Past Medical History: other - See my HPI Past Surgical History: none Pertinent Family History: none Social History: Reports: alcohol use Nursing Documentation-H Past Medical History: No History, Except For Hx Cardiac Problems: Yes Hx Hypertension: Yes Hx Pacemaker: No Hx Asthma: No Hx COPD: No Hx Diabetes: Yes Hx Cancer: No Hx Gastrointestinal Problems: Yes - anemia Hx Dialysis: No Hx Neurological Problems: No Hx Cerebrovascular Accident: No Hx Seizures: No Review of Systems All Other Systems: negative except mentioned in HPI Physical Exam Vital Signs Date Time Temp Pulse Resp B/P (MAP) Pulse Ox O2 Delivery O2 Flow Rate FiO2 07/25/17 16:18 98.4 85 18 143/83 95 Room Air Sp02 EP Interpretation: reviewed, normal General Appearance: normal inspection, well appearing, no apparent distress, alert, GCS 15, non-toxic, obese Head: atraumatic Eyes: bilateral eye PERRL, bilateral eye EOMI ENT: normal ENT inspection, hearing grossly normal, normal voice Neck: normal inspection, full range of motion, supple, no bony tend Respiratory: normal inspection, lungs clear, normal breath sounds, no respiratory distress, no retraction, no wheezing Cardiovascular #1: regular rate, rhythm, no edema Gastrointestinal: normal inspection, normal bowel sounds, non tender, soft, no guarding, no hernia Genitourinary: no CVA tenderness Musculoskeletal: normal inspection, back normal, normal range of motion, Shawn' s Sign negative Neurologic: normal inspection, alert, responsive, speech normal Psychiatric: normal inspection, judgement/insight normal, mood/affect normal Skin: normal inspection, normal color, no rash Medical Decision Making Diagnostic Impression: Primary Impression: Abdominal pain Qualified Codes: R10.12 - Left upper quadrant pain Additional Impression: Urinary tract infection Qualified Codes: N30.01 - Acute cystitis with hematuria ER Course Labs: No leuks. H&h stable. No metabolic abnormalities ECG NSR UA infected UTI , likely from lying in wet diaper in SNF IV Rocephin given in ED and Rx for keflex DC back to SNF Well appearing, not septic. Does not warrant further imaging, admission at this time EKG Diagnostic Results Rate: normal Rhythm: NSR ST Segments: no acute changes ASA given to the pt in ED: No Rhythm Strip Diag. Results EP Interpretation: yes Rate: 99 Rhythm: NSR, no PVC's, no ectopy Last Vital Signs Date Time Temp Pulse Resp B/P (MAP) Pulse Ox O2 Delivery O2 Flow Rate FiO2 07/25/17 16:20 98.4 80 18 143/83 95 Room Air Status: improved Disposition: XFER SNF Scripts Cephalexin* (KEFLEX*) 500 Mg Capsule 500 MG ORAL Q12HR for 7 Days, #14 CAP 0 Refills Prov: FARIDEH ZIEGLER M.D. 07/25/17 FARIDEH ZIEGLER M.D. Jul 25, 2017 16:42
[2017-07-25] MEDS ORDERED: Famotidine 20 MG/ 2ML VIAL IVP ONE (16:45)
[2017-07-25 17:03] LABS: APPEARANCE,URINE SLIGHTLY CLOUDY; KETONES,URINE NEGATIVE (NEGATIVE); LEUKOCYTE ESTERASE ,URINE 3+ (NEGATIVE); NITRITE,URINE NEGATIVE (NEGATIVE); PH,URINE 6.5 (4.5-8.0); PROTEIN,URINE 1+ (NEGATIVE); UROBILINOGEN,URINE NORMAL MG/DL (0.0-1.0)
[2017-07-25 17:17] LABS: BACTERIA,URINE MANY /HPF; SQUAMOUS EPITHELIAL CELL,UR FEW /LPF (NONE/OCC)
[2017-07-25 17:23] LABS: EOSINOPHILS % (AUTO) 3.2 % (0.0-3.0); MEAN CORPUSCULAR HEMOGLOBIN 29.7 PG (27.0-31.0); MEAN CORPUSCULAR VOLUME 93 FL (80-99); MEAN PLATELET VOLUME 7.2 FL (6.5-10.1); MONOCYTES % (AUTO) 11.8 % (1.0-10.0); PLATELET COUNT 255 K/UL (150-450); RED BLOOD COUNT 4.17 M/UL (4.20-5.40); RED CELL DISTRIBUTION WIDTH 11.8 % (11.6-14.8); WHITE BLOOD COUNT 7.1 K/UL (4.8-10.8)
[2017-07-25] MEDS ORDERED: cefTRIAXone 1 GM in NS 55 ML IVPB ONE (17:30)
[2017-07-25 17:33] LABS: ALANINE AMINOTRANSFERASE 11 U/L (12-78); ANION GAP 12 mmol/L (5-15); ASPARTATE AMINO TRANSFERASE 15 U/L (15-37); CARBON DIOXIDE 23 MMOL/L (21-32); CHLORIDE 98 MMOL/L (98-107); CREATININE 1.1 MG/DL (0.55-1.30); LIPASE 128 U/L (73-393); POTASSIUM 4.3 MMOL/L (3.5-5.1); SODIUM 133 MMOL/L (136-145); TOTAL PROTEIN 7.3 G/DL (6.4-8.2)
[2017-07-25] MEDS ORDERED: KEFLEX500 MG ORAL (17:47)
[2017-07-25 18:20] VITALS: BP 97/70
[2017-07-25 19:26] VITALS: BP 111/31
--- NOTE | 2017-07-27 18:37 | Cardiology Report ---
APPROVED REPORT EKG Measurement Heart [id number] Normal sinus rhythm Normal ECG
== END 2017-07-25 19:26 ==
LOC: EDBD 16:15 → EMR 17:00
DX: R10.12 Left upper quadrant pain (principal); N39.0 Urinary tract infection, site not specified; I10 Essential (primary) hypertension; E11.9 Type 2 diabetes mellitus without complications
CPT/HCPCS: 36415; 80053; 81003; 83690; 85025; 87086; 87181; 93005; 96374; 96375; 99284; J0696; J2405; S0028